=== PATIENT | female | born 1960 | race Caucasian/White ===

== ENCOUNTER → 2021-08-16 | Outpatient (CLI) | payer BC | LOC: KOH-I 08-12 13:00 | DX: Z09 Encounter for follow-up examination after completed treatment for conditions other than malignant neoplasm (principal); Z87.891 Personal history of nicotine dependence; R91.1 Solitary pulmonary nodule | CPT/HCPCS: 71271 ==

== ENCOUNTER → 2021-10-28 | Outpatient (CLI) | payer BC | LOC: KOH-I 09:22 | DX: M79.645 Pain in left finger(s) (principal); M79.644 Pain in right finger(s); M19.042 Primary osteoarthritis, left hand; M19.041 Primary osteoarthritis, right hand | CPT/HCPCS: 73130; 73562 ==